=== PATIENT | male | born 1955 | race Caucasian/White ===

== ENCOUNTER 2022-01-20 10:24 | Day surgery (SDC) | payer MEDICARE ==
[~2022-01-20 10:24] MED LIST: Metoclopramide 10 MG/2 ML SDV IV PRN; Sodium Chloride 0.9% 1,000 ML IV SCH
[2022-01-20] MEDS ORDERED: Propofol 1,000 MG/100 ML SDV ONE (12:50)
[2022-01-20 13:49] VITALS: BP 120/66; PULSE 66
== END 2022-01-20 13:50 | disposition home or self-care (01) ==
LOC: LB.SDS 10:24
PROVIDERS: ATTEND Surgery
DX: Z12.11 Encounter for screening for malignant neoplasm of colon (principal); D12.3 Benign neoplasm of transverse colon; I10 Essential (primary) hypertension; Z98.890 Other specified postprocedural states
CPT/HCPCS: 88305; J2704; J7030